=== PATIENT | female | born 1945 | race Caucasian/White ===

== ENCOUNTER 2018-05-29 11:28 | Emergency (ER) | payer OTHER, SELFPAY ==
[2018-05-29 11:34] VITALS: BP 134/64; PULSE 67; RESP 14; TEMP 36.5; O2SAT 96
--- NOTE | 2018-05-29 12:43 | ED_ITS ---
HPI - Back Pain/Injury <JOSE ARMANDO MoyerBC - Last Filed: 05/29/18 15:33> General Chief Complaint: Back Pain/Injury Stated Complaint: SEVERE PAIN IN LOW BACK, LEFT SIDE Time Seen by Provider: 05/29/18 12:03 Source: patient and family Mode of arrival: ambulatory Limitations: no limitations History of Present Illness HPI Narrative: The patient is a 73-year-old smoker who presents with her with a chief complaint of transient left lower back pain. The pain has been coming and going for several days. It started on , and was ameliorated with heat application. She states that her pain went away on Thursday. She states that her pain reoccurred this morning at 5:30 a.m., but went away on her way into the emergency department today. She denies any numbness or tingling. She states that the pain stays on her left side and does not radiate anywhere. She states she has had some pinching sensation on her right side for several weeks, not associated with this left-sided pain. She states she has been having that since she had shingles. She denies any chest pain, fever, weakness, dizziness, lightheadedness, shortness of breath. She denies any dysuria urgency or frequency. She denies any falls or trauma. She has an upcoming procedure with GI, complains of anxiety associated with this procedure. The patient has not taken any ibuprofen Tylenol or oxal-vle-bajwtfi pain medications. She states she is essentially pain-free upon arrival to the emergency department. She states she feels it only when she picks up her left leg while in a bent sitting position. Related Data Previous Rx's Medication Instructions Recorded diclofenac sodium [Voltaren] 2 gram TOP QID PRN #100 gram 05/29/18 Allergies Allergy/AdvReac Type Severity Reaction Status Date / Time lisinopril AdvReac Intermediate Cough Verified 05/29/18 11:39 prochlorperazine AdvReac Intermediate Agitated Verified 05/29/18 11:39 [From Compazine] Review of Systems <SHYANN Moyer - Last Filed: 05/29/18 15:33> Review of Systems GENERAL: Denies chills, fatigue, malaise, fever, sweats. HEENT: Denies sinus pain, ear pain, sore throat, difficulty swallowing, dizziness. RESPIRATORY: Denies dyspnea, cough, wheezing, hemoptysis, sputum. CARDIOVASCULAR: Denies chest pain, palpitations, orthopnea, edema, GASTROINTESTINAL: Denies nausea, vomiting, abdominal pain, diarrhea, constipation, melena. : Denies dysuria, frequency, incontinence, hematuria, urinary retention. MUSCULOSKELETAL: See HPI SKIN: Denies rash, skin lesions, or other NEUROLOGIC: Denies weakness, headache, numbness, change in speech, confusion, seizures, incoordination. PSYCHIATRIC: No concerning psychosocial issues. 12 point review of systems is negative except for those stated above PFSH <Karly YONATHAN NoP- - Last Filed: 05/29/18 15:33> Medical History History of shingles (Acute) Hypertension (Acute) Social History Smoking Status: Current every day smoker Social History Smoking Status: Current every day smoker Exam <YONATHAN MoyerP- - Last Filed: 05/29/18 15:33> Narrative Exam Narrative: GENERAL: This is a well-nourished, well-developed patient, sitting on stretcher with at bedside HEAD: Atraumatic. Normocephalic. No temporal or scalp tenderness. EYES: Pupils equal round and reactive. Extraocular motions intact. No scleral icterus. No injection or drainage. ENT: Nose without bleeding, purulent drainage or septal hematoma. Throat without erythema, tonsillar hypertrophy or exudate. Uvula midline. Airway patent. NECK: Trachea midline. No JVD or lymphadenopathy. Supple, nontender, no meningeal signs. CARDIOVASCULAR: Regular rate and rhythm without murmurs, gallops, or rubs. RESPIRATORY: Clear to auscultation. Breath sounds equal bilaterally. No wheezes, rales, or rhonchi. No cough. No increased respiratory effort. No accessory muscle use. GASTROINTESTINAL: Abdomen soft, non-tender, nondistended. No hepato- splenomegaly, or palpable masses. No guarding. EXTREMITIES: No clubbing, cyanosis, or edema. No joint tenderness, effusion, or edema noted. BACK: No pain to C-spine or spinal palpation. Slight Pain to palpation of paraspinal muscles on left side of lumbar spine. NEURO: AOx3. SKIN: No rash erythema ecchymosis on back. Initial Vital Signs Initial Vital Signs: Vital Signs Temperature 97.7 F 05/29/18 11:34 Pulse Rate 67 05/29/18 11:34 Respiratory Rate 14 05/29/18 11:34 Blood Pressure 134/64 05/29/18 11:34 Pulse Oximetry 96 05/29/18 11:34 <Karly Oden DO - Last Filed: 05/29/18 19:48> Initial Vital Signs Initial Vital Signs: Vital Signs Temperature 97.7 F 05/29/18 11:34 Pulse Rate 67 05/29/18 11:34 Respiratory Rate 14 05/29/18 11:34 Blood Pressure 134/64 05/29/18 11:34 Pulse Oximetry 96 05/29/18 11:34 Course <SHYANN Moyer - Last Filed: 05/29/18 15:33> Orders Ordered: ED Orders 05/29/18 11:50 Urine Culture Stat Urine Microscopic Stat Vital Signs - 8 hr 05/29/18 13:40 Pulse Rate 65 Respiratory Rate 14 Blood Pressure [Right Arm] 122/60 Pulse Oximetry 99 <Karly Oden DO - Last Filed: 05/29/18 19:48> Orders Ordered: ED Orders 05/29/18 11:50 Urine Culture Stat Urine Microscopic Stat Vital Signs - 8 hr 05/29/18 13:40 Pulse Rate 65 Respiratory Rate 14 Blood Pressure [Right Arm] 122/60 Pulse Oximetry 99 MDM - Back Pain/Injury <SHYANN Moyer - Last Filed: 05/29/18 15:33> Lab Data Lab Results 05/29/18 Range/Units 11:50 Urine RBC None seen (0-5/HPF) Urine WBC 0-1/hpf (0-5/HPF) Ur Squamous Epith Cells 0-1 /hpf Urine Bacteria Occasional (0-1) (None) Ur Culture Indicated? Specimen cultured Urine Dip Bedside Urine Glucose Negative Bedside Urine Bilirubin - Negative Bedside Urine Ketone - Negative Urine Specific Riparius 1.010 Bedside Urine Occult Blood - Negative Bedside Urine pH 6.0 Bedside Urine Protein - Negative Bedside Urine Urobilinogen - Negative Bedside Urine Nitrite - Negative Bedside Urine Leukocytes +/- 15 Esterase MDM Narrative Medical decision making narrative: The patient is a 73-year-old female who presents with transient left lower back pain. She is pain-free upon arrival to the emergency department and is not felt necessary to take [id number] pain medications prior to coming to the emergency department for her pain. Given her history of degenerative disc disease combined with her age, I offered her imaging which she declined today. I am okay with this as she does not have history of any trauma, any neurological deficit and does not have pain upon palpation of her C-spine. A urine was obtained to rule out UTI. Came back with trace bacteria, so a urine culture was obtained. However we will not treat for UTI given that she has no symptoms and has very slight abnormality on her UA. I discussed this with the patient and she is in accordance with this and does not want to take antibiotics at this point time. Otherwise her exam is consistent with muscle spasm. I discussed ibuprofen, Tylenol, topical NSAID, topical lidocaine. Patient elected to try pain cream. I gave her prescription of Voltaren. I encouraged her to follow up with primary care provider the next few days and come back to the emergency department if necessary. Discussed return precautions of chest pain, acute concern. <Karly Oden, DO - Last Filed: 05/29/18 19:48> Lab Data Lab Results 05/29/18 Range/Units 11:50 Urine RBC None seen (0-5/HPF) Urine WBC 0-1/hpf (0-5/HPF) Ur Squamous Epith Cells 0-1 /hpf Urine Bacteria Occasional (0-1) (None) Ur Culture Indicated? Specimen cultured Urine Dip Bedside Urine Glucose Negative Bedside Urine Bilirubin - Negative Bedside Urine Ketone - Negative Urine Specific Riparius 1.010 Bedside Urine Occult Blood - Negative Bedside Urine pH 6.0 Bedside Urine Protein - Negative Bedside Urine Urobilinogen - Negative Bedside Urine Nitrite - Negative Bedside Urine Leukocytes +/- 15 Esterase Discharge Plan Departure Patient Disposition: Home Clinical Impression: Muscle spasm Strain of lumbar region Qualifiers: Encounter type: initial encounter Qualified Code(s): S39.012A - Strain of muscle, fascia and tendon of lower back, initial encounter Discharge Date/Time: 05/29/18 13:41 Interventions: ED Discharge Assessment Last Done: 05/29/18 13:41 Instructions: DI for Muscle Strain, DI for Back Spasm Activity Restrictions/Additional Instructions: We are sending a urine culture to make sure that you do not have an infection at this point time. However your exam is consistent with muscle strain and spasm. You have declined imaging today. You can use the pain cream as needed. I also suggest rest, ice and/or heat and [id number] medications as needed and able. Please come back to the emergency department for any acute concerns including concern of heart attack or stroke. Please follow up with your primary care provider in the next few days. Prescriptions: New diclofenac sodium [Voltaren] 1 % gel 2 gram TOP QID PRN (Reason: pain) Qty: 100 RF: 0 Referrals: Myron Reeves MD [Non-Staff] - <Karly Oden DO - Last Filed: 05/29/18 19:48> Cosign ED Attending Cosignature Attestation: I was immediately available in the department for consultation. This documentation has been reviewed and I agree with assessment and plan. Supervised by Karly Oden DO
[2018-05-29 13:07] LABS: RBC Urine None Seen (0-5/HPF)
[2018-05-29 13:16] LABS: Bacteria Urine Occasional (0-1); Culture Indicated Urine Specimen Cultured; Squamous Epithelial Cell Urine 0-1 /HPF; WBC Urine 0-1/HPF (0-5/HPF)
[2018-05-29 13:40] VITALS: BP 122/60; PULSE 65; RESP 14; O2SAT 99
== END 2018-05-29 13:41 | disposition home or self-care (01) ==
PROVIDERS: Emergency Provider Nurse Practitioner Family
DX: M62.830 Muscle spasm of back (principal); S39.012A Strain of muscle, fascia and tendon of lower back, initial encounter
CPT/HCPCS: 81003; 81015; 87086; 99282